=== PATIENT | male | born 1950 | race Caucasian/White ===

== ENCOUNTER 2019-12-21 06:56 | Outpatient (NON) | payer MEDICARE, SELFPAY ==
[2019-12-21 17:45] LABS: SARS-CoV-2 RNA PCR Negative
== END 2019-12-21 06:57 ==
PROVIDERS: PCP Internal Medicine; Visit Provider Internal Medicine
DX: Z20.828 Contact with and (suspected) exposure to other viral communicable diseases (principal); R68.89 Other general symptoms and signs
CPT/HCPCS: 87635; C9803; U0003

== ENCOUNTER 2021-12-17 00:35 | Day surgery (SDC) | payer MEDICARE, SELFPAY ==
[2021-12-04 13:59] VITALS: BMI 33.5
[2021-12-17 07:49] VITALS: BP 145/78; PULSE 72; RESP 20; TEMP 36.2; O2SAT 100; BMI 33.5
[2021-12-17] MEDS: LACTATED RINGERS 1,000 ML 150 ML IV CONT (08:00)
[2021-12-17 08:01] LABS: Glucose Point of Care 117 mg/dl (65-105)
--- NOTE | 2021-12-17 08:24 | WPDANESEPPF ---
Anes - Initial Pre Proc Eval Procedure: Operation Date: 12/17/21 08:30 Proposed Procedures p Screening Colonoscopy - Fei Nunn MD Date/Time: 12/17/21 08:24 Surgeon: Fei Nunn MD Pre Op Diagnosis: hx colon polyps Patient Data Age: 71 Gender: M Height: 1.63 m Weight: 88.6 kg Last Vital Signs Temp 97.2 F L 12/17/21 07:49 Pulse 72 12/17/21 07:49 Resp 20 12/17/21 07:49 BP 145/78 H 12/17/21 07:49 Pulse Ox 100 12/17/21 07:49 O2 Del Method Room Air 12/17/21 07:49 Allergies Allergy/AdvReac Type Severity Reaction Status Date / Time erythromycin base Allergy Unknown itsching Verified 12/17/21 07:48 Home Medications Medication Instructions Recorded Confirmed Type ascorbic acid (vitamin C) 500 mg 500 mg PO DAILY 02/14/19 12/04/21 History tablet aspirin 81 mg tablet,delayed 81 mg PO DAILY 02/14/19 12/04/21 History release vitamin B complex (B 1 tablet PO DAILY 04/28/21 12/04/21 History Complex-Vitamin B12 tablet) dapagliflozin 10 mg tablet 10 mg PO DAILY #90 tabs 07/22/21 12/04/21 Rx (Farxiga) lancets 33 gauge (OneTouch Delica See Rx Instructions .Route 08/03/21 12/04/21 Rx Plus Lancet) .COMPLEX #100 ea lisinopril 10 1 tablet PO DAILY #90 tabs 10/12/21 12/04/21 Rx mg-hydrochlorothiazide 12.5 mg tablet sitagliptin 50 mg-metformin 1,000 1 tablet PO BID #180 tabs 11/05/21 12/04/21 Rx mg tablet (Janumet) peg 3350-electrolytes 236 240 ml PO Q10M #4,000 mL 11/10/21 12/04/21 Rx gram-22.74 gram-6.74 gram-5.86 gram solution (Golytely) atorvastatin 10 mg tablet 10 mg PO DAILY #90 tabs 11/18/21 12/04/21 Rx blood sugar diagnostic #300 ea 11/18/21 12/04/21 Rx Laboratory Tests 12/17/21 07:57 POC Capillary Glucose 117 mg/dl H mg/dl (65-105) Patient hx anesthesia problems: none Family hx anesthesia problems: none Results Review: All pre-operative results and documents have been reviewed as part of the pre-operative evaluation. [facility] Surgical History Surgical History History of ear surgery Family History Family History Mother Family history of diabetes mellitus in first degree relative Family history of malignant neoplasm, Onset Age: 65 Diabetes mellitus, Onset Age: 65 Father Family history of diabetes mellitus in first degree relative, Onset Age: 65 Family history of heart disease in male family member before age 55, Onset Age: 65 Patient's father is Acute myocardial infarction, Onset Age: 65 Sibling Family history of malignant neoplasm of breast in first degree relative Patient's brother is in good health Family history of cardiovascular disease Carcinoma of colon Social History Social History Smoking status: Never smoker Second hand tobacco smoke exposure: Yes Alcohol intake: never Substance use: never Substance use type: does not use Living arrangements: with family Spiritual care concerns: No Anes - Eval Final PreProcedure Day of Procedure 12/17/21 08:24 Patient weight: obese Heart: regular rate and rhythm Lungs: clear to auscultation Neurological: alert and oriented Last oral intake: >/= 8 hours ASA classification: III Emergent: no Anesthetic plan: proceed Anesthesia type and monitoring: general GIVS and standard monitoring Results Review: All pre-operative results and documents have been reviewed as part of the pre-operative evaluation. Informed Consent: The patient's anesthetic plan and its attendant risks and benefits were discussed with the patient/family/POA. Questions were solicited and answers provided to the satisfaction of the patient/family/POA.
--- NOTE | 2021-12-17 08:31 | PM.HPGS ---
History of Present Illness History of Present Illness Consent: Risks, benefits, and alternatives have been discussed and questions answered. Patient agrees to proceed with procedure. Chief complaint: hx colon polyps Narrative: Kevin Ward is a 71 year old male Presents for screening colonoscopy. Patient's current weight appetite and bowel movements are normal. He denies abdominal pain. Patient has had no bleeding. Patient has a history of a benign colon polyp removed from the colon 2015. Family history is significant that his brother had colon cancer. Patient presents today for screening colonoscopy. Patient's past medical history is significant for prostatectomy for prostate cancer several years ago. Review of Systems Review of Systems: Review of systems noncontributory. [facility] Surgical History Surgical History History of ear surgery Family History Family History Mother Family history of diabetes mellitus in first degree relative Family history of malignant neoplasm, Onset Age: 65 Diabetes mellitus, Onset Age: 65 Father Family history of diabetes mellitus in first degree relative, Onset Age: 65 Family history of heart disease in male family member before age 55, Onset Age: 65 Patient's father is Acute myocardial infarction, Onset Age: 65 Sibling Family history of malignant neoplasm of breast in first degree relative Patient's brother is in good health Family history of cardiovascular disease Carcinoma of colon Social History Social History Smoking status: Never smoker Second hand tobacco smoke exposure: Yes Alcohol intake: never Substance use: never Substance use type: does not use Living arrangements: with family Spiritual care concerns: No Meds Home Medications and Allergies Home Medications Medication Instructions Recorded Confirmed Type ascorbic acid (vitamin C) 500 mg 500 mg PO DAILY 02/14/19 12/04/21 History tablet aspirin 81 mg tablet,delayed 81 mg PO DAILY 02/14/19 12/04/21 History release vitamin B complex (B 1 tablet PO DAILY 04/28/21 12/04/21 History Complex-Vitamin B12 tablet) dapagliflozin 10 mg tablet 10 mg PO DAILY #90 tabs 07/22/21 12/04/21 Rx (Farxiga) lancets 33 gauge (OneTouch Delica See Rx Instructions .Route 08/03/21 12/04/21 Rx Plus Lancet) .COMPLEX #100 ea lisinopril 10 1 tablet PO DAILY #90 tabs 10/12/21 12/04/21 Rx mg-hydrochlorothiazide 12.5 mg tablet sitagliptin 50 mg-metformin 1,000 1 tablet PO BID #180 tabs 11/05/21 12/04/21 Rx mg tablet (Janumet) peg 3350-electrolytes 236 240 ml PO Q10M #4,000 mL 11/10/21 12/04/21 Rx gram-22.74 gram-6.74 gram-5.86 gram solution (Golytely) atorvastatin 10 mg tablet 10 mg PO DAILY #90 tabs 11/18/21 12/04/21 Rx blood sugar diagnostic #300 ea 11/18/21 12/04/21 Rx Allergies Allergy/AdvReac Type Severity Reaction Status Date / Time erythromycin base Allergy Unknown itsching Verified 12/17/21 07:48 Vital Signs Vital Signs - 24 hr 12/17/21 07:49 Temperature 97.2 F L Pulse Rate 72 Respiratory Rate 20 Blood Pressure 145/78 H Pulse Oximetry 100 Oxygen Delivery Room Air Exam Narrative: Physical exam reveals patient to be alert. Vital signs stable. HEENT exam is unremarkable. Patient is anicteric. Lungs are clear to auscultation and percussion. Heart is without murmur or extra sounds. Abdomen bowel sounds are present soft nontender with no organomegaly Assessment and Plan Assessment and plan (1) History of colon polyps: Code(s): Z86.010 - Personal history of colonic polyps Status: Acute Assessment and Plan: Patient has a history of a benign colon polyp removed in 2016. Plan for surveillance colonoscopy now and consider at 5 year interval
[2021-12-17 08:58] VITALS: BP 105/67; PULSE 69; RESP 15; O2SAT 96
[2021-12-17 09:08] VITALS: BP 114/69; PULSE 65; RESP 19; O2SAT 93
[2021-12-17 09:18] VITALS: BP 133/87; PULSE 74; RESP 16; O2SAT 94
== END 2021-12-17 09:29 | disposition home or self-care (01) ==
PROVIDERS: PCP Internal Medicine; Visit Provider Internal Medicine Gastroenterology
PROC: 0DJD8ZZ Inspection of Lower Intestinal Tract, Via Natural or Artificial Opening Endoscopic (ICD-10-PCS; CPT 45378; principal; 2021-12-17 08:30)
DX: Z12.11 Encounter for screening for malignant neoplasm of colon (principal); D12.3 Benign neoplasm of transverse colon; K64.8 Other hemorrhoids; Z80.0 Family history of malignant neoplasm of digestive organs; Z79.82 Long term (current) use of aspirin; Z79.84 Long term (current) use of oral hypoglycemic drugs; E66.9 Obesity, unspecified; Z68.33 Body mass index [BMI] 33.0-33.9, adult; Z85.46 Personal history of malignant neoplasm of prostate
CPT/HCPCS: 45385; 82948; 88305; J2704; J7120

== ENCOUNTER 2022-03-31 10:56 | Outpatient (CLI) | payer MEDICARE, SELFPAY ==
--- NOTE | ~2022-03-31 | CT_ITS ---
EXAMINATION: CT abdomen pelvis wo con DATE: 03/31/2022 11:26 INDICATION: Left ureteral stone TECHNIQUE: Computed tomography (CT) of the abdomen and pelvis was performed without intravenous contr ast. Automated exposure control and iterative reconstruction technique were employed. The dose-length product was 547.83 mGy-cm. COMPARISON: 05/30/2018 FINDINGS: Mild bibasilar atelectasis. A couple small calcified nodules in the bilateral lower lobes and calcifi ed left hilar lymph nodes consistent with old granulomatous disease. Heart size is normal. Atheroscle rotic coronary artery calcific location. Small pericardial effusion. Liver, gallbladder, spleen, panc reas and bilateral adrenal glands are normal. Couple 5 mm stones at a lower pole calyx of the right k idney and 2 mm stone at a lower pole calyx of the left kidney. No ureteral stones or hydronephrosis. Bowels including the appendix are normal. Bladder is normal. No free intraperitoneal gas or fluid. No pathologically enlarged abdominal or pelvic lymphadenopathy. Small fat-containing umbilical hernia. A few small bone islands in the pelvis and right femoral head. IMPRESSION: 1. Lateral nonobstructing nephrolithiasis. No ureteral stones. 2. Small pericardial effusion. Reviewed, dictated and finalized at location A. [employer]
--- NOTE | ~2022-03-31 | XR_ITS ---
EXAMINATION: XR abdomen/kub 1V DATE: 03/31/2022 13:00 INDICATION: Left ureteral stone. TECHNIQUE: A supine view of the abdomen on 2 radiographs was obtained. COMPARISON: CT abdomen and pelvis 03/31/2022 FINDINGS: There are no dilated loops of bowel. There are two 5 mm stones in right kidney. There is a 2 mm stone in left kidney. IMPRESSION: 1. Bilateral kidney stones. Reviewed, dictated and finalized at location A. K WASHER IMPRESSION: 1. Bilateral kidney stones.
== END 2022-03-31 10:57 | disposition home or self-care (01) ==
PROVIDERS: PCP Internal Medicine; Visit Provider Urology
DX: N20.0 Calculus of kidney (principal); I31.39 Other pericardial effusion (noninflammatory)
CPT/HCPCS: 74018; 74176

== ENCOUNTER → 2022-04-05 11:09 | Outpatient (CLI) | payer MEDICARE, SELFPAY ==
--- NOTE | ~2022-04-05 | XR_ITS ---
Cervical Spine: AP and lateral views, neutral, flexion, and extension positioning, and open-mouth vie w Clinical History: Pain Findings: The normal lordotic curve is maintained. The vertebral bodies and posterior elements appea r intact. No instability seen on flexion or extension. The intervertebral disc spaces are well mainta ined. Pre-vertebral soft tissues are unremarkable. Impression: No significant abnormality is seen. Reviewed, dictated and finalized at location M. S TENNIS COACH Impression: No significant abnormality is seen.
== END ==
PROVIDERS: PCP Internal Medicine; Visit Provider Nurse Practitioner
DX: M54.2 Cervicalgia (principal)
CPT/HCPCS: 72050

== ENCOUNTER → 2022-06-03 12:17 | Outpatient (CLI) | payer MEDICARE, SELFPAY ==
--- NOTE | ~2022-06-03 | MR_ITS ---
EXAMINATION: MR knee RT wo con DATE: 06/03/2022 12:47 INDICATION: Right knee pain TECHNIQUE: Magnetic resonance imaging (MRI) of the right knee was performed without intravenous contr ast. Sequences included coronal PD-weighted FSE, coronal PD-weighted FS FSE, sagittal T2-weighted FS E, sagittal PD-weighted FS FSE and axial PD weighted fat saturated FSE. COMPARISON: None. FINDINGS: Medial compartment: Small tears of indeterminate morphology extending to the intra-articular surface at the body of the m edial meniscus and at the free edge of the posterior horn of the medial meniscus. Shallow chondral ul ceration along the anterior to central weightbearing medial femoral condyle. Articular cartilage of t he medial tibial plateau appears relatively preserved. Lateral compartment: Lateral meniscus is normal. Articular cartilage is normal. Patellofemoral compartment: Deep chondral and ulceration and fissuring with minimal underlying cortical irregularity and edema-li ke signal change at the patellar apical ridge and medial facet. Additional deep chondral ulceration w ith underlying cortical irregularity at the anterior aspect of the lateral trochlea and trochlear crystal ove. Ligaments and tendons: Anterior and posterior cruciate ligaments are normal. The fibular collateral ligament complex is norm al. There is a tiny longitudinal split tear between the central and posterior thirds of the proximal ligament. There is mild edema along the deep and superficial margins of the medial collateral ligamen t. Patellar tendon is normal. Mild tendinopathy and small enthesophytes at the patellar insertion of the lateral side of the distal quadriceps tendon. The visualized medial and lateral hamstring tendons as well as the iliotibial band are normal. Fluid: Small right knee joint effusion. No loose osteochondral bodies identified. Small Shrestha's cyst. Osseous/other: Bone alignment is normal. No fracture or pathologic marrow replacing process. IMPRESSION: 1. Small tears of indeterminate morphology at the medial meniscal body and posterior horn. 2. Mild osteoarthritis with regions of moderate and high-grade chondral malacia the medial and patell ofemoral compartments. 3. Age-indeterminate tiny longitudinal split tear at the proximal medial collateral ligament. The oliver ctive edema along side the proximal tendon could be related to either recent injury of the ligament o r the adjacent medial meniscus. 4. Small right knee joint effusion and small Shrestha's cyst. Reviewed, dictated and finalized at location A. IMPRESSION: 1. Small tears of indeterminate morphology at the medial meniscal body and post erior horn. 2. Mild osteoarthritis with regions of moderate and high-grade chondral malacia the medial and patellofemoral compartments. 3. Age-indeterminate tiny longitudinal split tear at the proximal medial collat eral ligament. The reactive edema along side the proximal tendon could be relat ed to either recent injury of the ligament or the adjacent medial meniscus. 4. Small right knee joint effusion and small Shrestha's cyst.
== END ==
PROVIDERS: PCP Internal Medicine; Visit Provider Orthopaedic Surgery
DX: S83.241A Other tear of medial meniscus, current injury, right knee, initial encounter (principal); M17.11 Unilateral primary osteoarthritis, right knee; S83.411A Sprain of medial collateral ligament of right knee, initial encounter; M25.461 Effusion, right knee; M71.21 Synovial cyst of popliteal space [Baker], right knee; T14.90XA Injury, unspecified, initial encounter
CPT/HCPCS: 73721

== ENCOUNTER 2022-06-23 12:32 | Outpatient (CLI) | payer MEDICARE, SELFPAY ==
--- NOTE | 2022-06-23 | ECG_ITS ---
Measurements Intervals [place] Rate: 77 P: 52 NE: 189 QRS: -16 QRSD: 112 T: 27 QT: 357 QTc: 404 Interpretive Statements SINUS RHYTHM LOW QRS VOLTAGE IN PRECORDIAL LEADS [QRS DEFLECTION < 1.0 mV IN CHEST LEADS] POSSIBLE ANTERIOR MYOCARDIAL INFARCTION , OF INDETERMINATE AGE [30 ms Q WAVE IN V3/V4, OR R < 0.2 mV IN V4] INFERIOR MYOCARDIAL INFARCTION , PROBABLY OLD [40+ ms Q WAVE AND/OR ST/T ABNORMALITY IN II/aVF] ABNORMAL ECG COMPARED TO ECG 10/02/2018 14:51:49 MYOCARDIAL INFARCT FINDING NOW PRESENT Electronically Signed On 06-23-2022 13:39:29 CDT by Roly Mcleod M.D.
[2022-06-23 13:18] LABS: Anion Gap 10 mmol/L (8-16); Blood Urea Nitrogen 25 mg/dL (9-20); Calcium 10.4 mg/dL (8.4-10.2); Carbon Dioxide 29 mmol/L (22-30); Chloride 101 mmol/L (98-107); Estimated Glomerular Filt Rate > 60; Glucose 230 mg/dL (65-110); Potassium 4.1 mmol/L (3.4-5.0); Sodium 140 mmol/L (137-145)
== END 2022-06-23 12:33 | disposition home or self-care (01) ==
LOC: ANHLAB 12:38
PROVIDERS: PCP Internal Medicine; Visit Provider Orthopaedic Surgery
DX: Z01.818 Encounter for other preprocedural examination (principal); R94.31 Abnormal electrocardiogram [ECG] [EKG]
CPT/HCPCS: 36415; 80048; 93005

== ENCOUNTER 2022-09-30 08:52 | Outpatient (CLI) | payer MEDICARE, SELFPAY ==
--- NOTE | ~2022-09-30 | XR_ITS ---
EXAMINATION: XR abdomen/kub 1V DATE: 09/30/2022 09:12 INDICATION: Calcium kidney stone. TECHNIQUE: A supine view of the abdomen on 2 radiographs was obtained. COMPARISON: Abdomen radiographs 03/31/2022, CT abdomen and pelvis 03/31/2022 FINDINGS: There are no dilated loops of bowel. There are 7 mm and 9 mm stones in right kidney. IMPRESSION: 1. Right kidney stones. Reviewed, dictated and finalized at location L. IMPRESSION: 1. Right kidney stones.
== END 2022-09-30 08:53 | disposition home or self-care (01) ==
PROVIDERS: PCP Family Medicine; Visit Provider Urology
DX: N20.0 Calculus of kidney (principal)
CPT/HCPCS: 74018

== ENCOUNTER 2022-11-08 07:42 | Outpatient (CLI) | payer MEDICARE, SELFPAY ==
[2022-11-08 09:15] LABS: Anion Gap 10 mmol/L (8-16); Blood Urea Nitrogen 25 mg/dL (9-20); Calcium 9.9 mg/dL (8.4-10.2); Carbon Dioxide 27 mmol/L (22-30); Chloride 102 mmol/L (98-107); Estimated Glomerular Filt Rate > 60; Glucose 135 mg/dL (65-110); INR 0.9; Potassium 3.8 mmol/L (3.4-5.0); Prothrombin Time 12.7 Seconds (11.1-14.7); Sodium 139 mmol/L (137-145)
[2022-11-08 09:16] LABS: Partial Thromboplastin Time 29.4 SECONDS (22.3-36.8)
== END 2022-11-08 07:43 | disposition home or self-care (01) ==
LOC: ANHSURGERY 07:56
PROVIDERS: Anesthesiology; PCP Family Medicine; Visit Provider Urology
DX: Z01.818 Encounter for other preprocedural examination (principal); E11.9 Type 2 diabetes mellitus without complications; N20.0 Calculus of kidney
CPT/HCPCS: 36415; 80048; 85610; 85730; 87086

== ENCOUNTER 2022-11-12 00:16 | Day surgery (SDC) | payer MEDICARE, SELFPAY ==
[2022-11-05 11:11] VITALS: BMI 33.5
--- NOTE | 2022-11-05 11:27 | PC.NURSE ---
PRE-OP INSTRUCTIONS, PLEASE READ CAREFULLY Report to the Outpatient Waiting Room, entrance under the green pavilion located off [facility], at time _0600_ on date _11/12/22_. Planned Procedure Time: _0730_. Time changes happen often and if your time is changed the preop area will call you the afternoon before. - You and your visitor will be asked to self-screen and do not enter if you have any COVID symptoms. - A mask is optional within the hospital at this time. Patients may have clear liquids (water, carbonated beverages, clear teas, apple juice) until 3 hours prior to surgery (0430 AM) with a maximum of 20 ounces. - No food from midnight until time of surgery Take the following medications with a SIP of water the morning of surgery: _METHOCARBAMOL IF NEEDED_ DO NOT STOP ANY OF YOUR OTHER PRESCRIPTION MEDICATIONS PRIOR TO SURGERY ?EXCEPT THE FOLLOWING Medications to discontinue per DR. CACERES - _ASPIRIN OF TODAY 11/05/22 Please no make-up, nail malaysian, hairspray, perfume, deodorant, or body powder the day of surgery. No jewelry (including any body piercings) or valuables the day of surgery, leave them at home. Please take a shower or bath the night before, or the morning of, surgery with an antibacterial soap. Wear comfortable, loose fitting clothing. - Jewelry must be removed prior to entering the operating room. Rings and piercings that are not removed may be cut off. - The hospital will not accept responsibility for valuables. - Please leave all valuables, including medications, at home the day of surgery. If you are going home after surgery, a licensed wedding transportation driver must drive you home. - NO public transportation without another adult if you receive anesthesia. - We recommend that an adult stay with you for 24 hours following discharge. - We also recommend that you do not drive, make important decision, drink alcoholic beverages, or take any drugs that were not prescribed by your health care provider for at least 24 hours after your discharge time. Follow any additional instructions given to you from your surgeon. If you or anyone in your household have experienced Covid symptoms in the past week, please notify your surgeon or the nurse liaison at the phone number below for possible testing. Telephone instructions given to _PATIENT'S SPOUSE - CANDELARIO_and asked if any additional questions and then verbalized understanding. Patient advised to call surgeon office or pre surgery nurse liaison [phone] if any additional questions.
[2022-11-12] VITALS (7 sets, daily range): BP systolic 110–151; BP diastolic 74–95; PULSE 59–69; RESP 12–16; TEMP 36.2; O2SAT 97–100
--- NOTE | ~2022-11-12 | XR_ITS ---
Supine and upright views of the abdomen Clinical history: Lithotripsy COMPARISON: 09/30/2022 Findings: Bowel gas pattern is nonspecific. No evidence for obstruction or free air. Stable right nep hrolithiasis. Osseous structures are intact. Impression: Stable right nephrolithiasis as compared to 09/30/2022. Reviewed, dictated and finalized at [facility]. Impression: Stable right nephrolithiasis as compared to 09/30/2022.
[2022-11-12 07:09] LABS: Glucose Point of Care 181 mg/dl (65-105)
--- NOTE | 2022-11-12 07:13 | WPDANESEPPF ---
Anes - Initial Pre Proc Eval Procedure: Operation Date: 11/12/22 07:30 Proposed Procedures p Right Renal Extracorporeal Shock Wave Lithotripsy - Leo Camara MD Date/Time: 11/12/22 07:13 Surgeon: Leo Camara MD Pre Op Diagnosis: right renal stone Patient Data Age: 72 Gender: M Height: 1.63 m Weight: 88.2 kg Last Vital Signs Temp 36.2 C L 11/12/22 07:00 Pulse 67 11/12/22 07:00 Resp 16 11/12/22 07:00 BP 110/74 11/12/22 07:00 Pulse Ox 100 11/12/22 07:00 O2 Del Method Room Air 11/12/22 07:00 Allergies Allergy/AdvReac Type Severity Reaction Status Date / Time erythromycin base Allergy Unknown itsching Verified 11/12/22 06:04 Home Medications Medication Instructions Recorded Confirmed Type ascorbic acid (vitamin C) 500 mg 500 mg PO DAILY 02/14/19 11/05/22 History tablet aspirin 81 mg tablet,delayed 81 mg PO DAILY 02/14/19 11/05/22 History release vitamin B complex (B 1 tablet PO DAILY 04/28/21 11/05/22 History Complex-Vitamin B12 tablet) methocarbamol 750 mg tablet 750 mg PO TID PRN muscle spasm #30 04/01/22 11/05/22 Rx tabs lancets 33 gauge (OneTouch Delica See Rx Instructions .Route 04/27/22 11/05/22 Rx Plus Lancet) .COMPLEX #100 ea omega 7-xxi-xvf-fish oil 1,000 mg 2 cap PO BID 07/09/22 11/05/22 History (120 mg-180 mg) capsule (Fish Oil) dapagliflozin propanediol 10 mg 10 mg PO DAILY #90 tabs 07/19/22 11/05/22 Rx tablet (Farxiga) lisinopril 10 1 tablet PO DAILY #90 tabs 08/30/22 11/05/22 Rx mg-hydrochlorothiazide 12.5 mg tablet sitagliptin phosphate 50 1 tablet PO BID #180 tabs 09/02/22 11/05/22 Rx mg-metformin 1,000 mg tablet (Janumet) blood sugar diagnostic (OneTouch #300 strips 11/08/22 Rx Ultra Test strips) atorvastatin 10 mg tablet 10 mg PO DAILY #90 tabs 11/09/22 Rx Laboratory Tests 11/12/22 07:06 POC Capillary Glucose 181 H mg/dl (65-105) Patient hx anesthesia problems: none Family hx anesthesia problems: none Results Review: All pre-operative results and documents have been reviewed as part of the pre-operative evaluation. [facility] Surgical History Surgical History History of ear surgery Family History Family History Mother Family history of diabetes mellitus in first degree relative Family history of malignant neoplasm, Onset Age: 65 Diabetes mellitus, Onset Age: 65 Father Family history of diabetes mellitus in first degree relative, Onset Age: 65 Family history of heart disease in male family member before age 55, Onset Age: 65 Patient's father is Acute myocardial infarction, Onset Age: 65 Sibling Family history of malignant neoplasm of breast in first degree relative Patient's brother is in good health Family history of cardiovascular disease Carcinoma of colon Social History Social History Smoking status: Never smoker Second hand tobacco smoke exposure: No Alcohol intake: never Substance use: never Substance use type: does not use Lack of Transportation: No Lack of Food: Never True Current Housing: I Have Housing Concerned About Future Housing: No Difficulty Paying Gas/Electric Bills: No Difficulty Paying for Meds: No Currently Unemployed: No Education: High School Diploma/GED Difficulty w/ Childcare or Family Care: No Living arrangements: with family Spiritual care concerns: No Anes - Eval Final PreProcedure Day of Procedure 11/12/22 07:13 Patient weight: obese Heart: regular rate and rhythm Lungs: clear to auscultation Airway: Mallampati scale class II Neurological: alert and oriented Last oral intake: >/= 8 hours ASA classification: III Emergent: no Anesthetic plan: proceed Anesthesia type and monitoring: g
--- NOTE | 2022-11-12 07:20 | WPDHPUPDATE1 ---
History and Physical Update Update Date/Time: 11/12/22 07:20 History and Physical has been reviewed, including an updated exam of the patient. There are NO changes in the patient's condition. Risks, benefits, and alternatives have been discussed and questions answered. Patient agrees to proceed with procedure. Proceed with right renal eswl
[2022-11-12] MEDS: LACTATED RINGERS 1,000 ML 30 ML IV CONT (07:29)
[2022-11-12] MEDS: ceFAZolin 2 GM/D5W 50 ML 2 GM/50 ML BAG IVPB (07:30)
--- NOTE | 2022-11-12 08:01 | W.PM.PROC2 ---
Procedure Note - Detailed Date of Procedure 11/12/22 Pre-op Diagnosis right renal stone Post-op Diagnosis Same Procedure Performed Lithotripsy of right renal calculus Surgeon Leo Camara MD Anesthesia General Description of Procedure Patient is taken to the operative suite correctly identified. Once anesthesia was obtained the stone was localized in both planes. Two thousand five hundred shocks were given the stone. It did appear to fragment however the degree is unclear. He tolerated procedure well without any complications. He was taken recovery stable condition. He will follow-up in 7-10 days with KUB. This completes dictation. Please send a copy of op note to my office. Drains No Packing No Pathology None sent Complications No immediate complications Condition Stable Disposition PACU
[2022-11-12 08:20] LABS: Glucose Point of Care 173 mg/dl (65-105)
== END 2022-11-12 09:39 | disposition home or self-care (01) ==
PROVIDERS: PCP Nurse Practitioner; Visit Provider Urology
PROC: (CPT 50590; principal; 2022-11-12 07:30)
DX: N20.0 Calculus of kidney (principal); C61 Malignant neoplasm of prostate; Z79.82 Long term (current) use of aspirin; Z79.84 Long term (current) use of oral hypoglycemic drugs; E66.9 Obesity, unspecified; Z68.33 Body mass index [BMI] 33.0-33.9, adult
CPT/HCPCS: 50590; 36415; 74018; 80048; 82948; 85610; 85730; 87086; J0690; J2405; J2704; J3010; J7120

== ENCOUNTER 2022-11-22 08:15 | Outpatient (CLI) | payer MEDICARE, SELFPAY ==
--- NOTE | ~2022-11-22 | XR_ITS ---
XR abdomen/kub 1V 11/22/2022 08:35 Indication: KUB Procedure: 11/12 and 09/30/2022 Comparison: 11/12/2022 Findings: There is a stone at the lower pole of the right kidney. Stone burden has diminished since p rior examination. Bowel pattern is nonobstructive. There is a sclerotic lesion of the left ilium, mos t likely benign bone island. Impression: 1: Right nephrolithiasis. Reviewed, dictated and finalized at location B. Impression: 1: Right nephrolithiasis.
== END 2022-11-22 08:16 | disposition home or self-care (01) ==
PROVIDERS: PCP Nurse Practitioner; Visit Provider Urology
DX: N20.0 Calculus of kidney (principal)
CPT/HCPCS: 74018

== ENCOUNTER 2023-02-02 10:32 | Observation (INO) | payer MEDICARE, SELFPAY ==
[2023-02-02] VITALS (27 sets, daily range): BP systolic 99–158; BP diastolic 61–106; PULSE 54–151; RESP 16–25; TEMP 36.7–37; O2SAT 95–100; BMI 33.8
--- NOTE | ~2023-02-02 | XR_ITS ---
EXAMINATION: XR chest 2V 02/02/2023 11:21 INDICATION: Atrial fibrillation PROCEDURE: 2 view chest COMPARISON: 10/12/2010 FINDINGS: The lungs are clear. The cardiomediastinal silhouette is within normal limits. There are no pleural effusions. There is no pneumothorax suspected. IMPRESSION: 1: NO ACUTE CARDIOPULMONARY DISEASE. Reviewed, dictated and finalized at location B. TING SUPERVISOR
--- NOTE | 2023-02-02 10:34 | ECG_ITS ---
Measurements Intervals [place] Rate: 153 P: DC: 0 QRS: -3 QRSD: 106 T: 12 QT: 286 QTc: 457 Interpretive Statements ATRIAL FIBRILLATION WITH RAPID VENTRICULAR RESPONSE LOW QRS VOLTAGE IN PRECORDIAL LEADS [QRS DEFLECTION < 1.0 mV IN CHEST LEADS] INCOMPLETE RIGHT BUNDLE BRANCH BLOCK [90+ ms QRS DURATION, TERMINAL R IN V1/V2, 40+ ms S IN I/aVL/V4/V5/V6] POOR R-WAVE PROGRESSION, CANNOT RULE OUT OLD ANTERIOR NE ABNORMAL RHYTHM ECG COMPARED TO ECG 06/23/2022 13:09:41 ATRIAL FIBRILLATION NOW PRESENT INCOMPLETE RIGHT BUNDLE-BRANCH BLOCK NOW PRESENT Electronically Signed On 02-02-2023 12:10:17 [employer] DEVELOPER by Evon Cisneros M.D.
--- NOTE | 2023-02-02 10:47 | ED.ARRPALP ---
HPI - Arrhythmia/Palpitations General Chief Complaint: Arrhythmia/Palpitations Stated Complaint: in afib Time Seen by Provider: 02/02/23 10:40 History of Present Illness HPI narrative: 72-year-old male history of hypertension, high cholesterol and diabetes presenting to the emergency department for evaluation of increased heart rate this morning. Patient states he felt fine going to bed last night and this morning when he woke up he felt that he was having increased heart rate. Patient initially presented to an urgent care and then was referred to the emergency department. Upon arrival to the ED patient had a heart rate in the 130s. Patient states he feels heart is racing but denies any associated chest pain or shortness of breath. Patient has no prior history of coronary disease and had a stress test approximately 5 years ago. Patient denies any prior history of PE or DVT. Patient is not on any blood thinners but does take a daily aspirin. Related Data Home Medications Medication Instructions Recorded Confirmed ascorbic acid (vitamin C) 500 mg 500 mg PO DAILY 02/14/19 02/02/23 tablet aspirin 81 mg tablet,delayed 81 mg PO DAILY 02/14/19 02/02/23 release vitamin B complex (B 1 tablet PO DAILY 04/28/21 02/02/23 Complex-Vitamin B12 tablet) omega 2-qvf-xlm-fish oil 1,000 mg 2 cap PO BID 07/09/22 02/02/23 (120 mg-180 mg) capsule (Fish Oil) cyanocobalamin (vitamin B-12) 1,000 mcg PO DAILY 11/16/22 02/02/23 1,000 mcg tablet (Vitamin B-12) multivitamin 1 tablet PO DAILY 02/02/23 02/02/23 Allergies Allergy/AdvReac Type Severity Reaction Status Date / Time erythromycin base Allergy Unknown Itching Verified 02/02/23 14:32 Review of Systems Review of Systems: All systems reviewed & are unremarkable except as noted in HPI and below PMFSH Past Medical History Medical History (Updated 02/02/23 @ 18:45 by Dominik Mcneil MD) Family history of premature CAD Hypertension Mixed hyperlipidemia New onset a-fib Type 2 diabetes mellitus without complication, without long-term current use of insulin Surgical History Surgical History History of ear surgery Family History Family History (Updated 02/02/23 @ 15:18 by Evon Cisneros MD) Mother Family history of diabetes mellitus in first degree relative Family history of malignant neoplasm, Onset Age: 65 History of smoking, of lung cancer age 65 Diabetes mellitus, Onset Age: 65 Father Family history of diabetes mellitus in first degree relative, Onset Age: 65 Family history of heart disease in male family member before age 55, Onset Age: 65 Patient's father is Acute myocardial infarction, Onset Age: 65 1st heart attack was age 42, of heart attack at 64 Sibling Family history of malignant neoplasm of breast in first degree relative Patient's brother is in good health Family history of cardiovascular disease Carcinoma of colon Social History Social History (Updated 02/02/23 @ 15:31 by Evon Cisneros MD) 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 Likes to go on [employer], 2 to the [place] and one to [place] in [id number]. Smoking status: Never smoker Second hand tobacco smoke exposure: No Alcohol intake: never Substance use: never Substance use type: does not use Lack of Transportation: No Lack of Food: Never True Current Housing: I Have Housing Concerned About Future Housing: No Difficulty Paying Gas/Electric Bills: No Difficulty Paying for Meds: No Currently Unemployed: No Education: High School Diploma/GED Difficulty w/ Childcare or Family Care: No Living arrangements: with family Spiritual care concerns: No Exam Narrative: APPEARANCE: Well appearing, no pain, no distress, well-nourished. HEAD: normocephalic, atraumatic. EYES: PERRLA/EOMI, conjunctivae ankit
[2023-02-02] MEDS: dilTIAZem 100 MG/100 ML 100 MG/100 ML BAG IV CONT (10:52)
[2023-02-02] MEDS: dilTIAZem HCl INJ 25 MG/5 ML VIAL 10 MG IV PUSH (10:52)
[2023-02-02 11:08] LABS: Basophils Absolute Auto 0.1 K/mm3 (0.0-0.1); Basophils Percent Auto 0.8 % (0.2-1.2); Eosinophils Absolute Auto 0.1 K/mm3 (0-0.3); Eosinophils Percent Auto 1.4 % (0-4.4); Hematocrit 53.5 % (42.0-52.0); Hemoglobin 17.9 g/dL (14.0-18.0); Immature Granulocyte Absolute 0.01 K/mm3 (0.00-0.031); Immature Granulocyte Percent A 0.2 % (0-0.5); Lymphocytes Absolute Auto 1.62 K/mm3 (0.9-3.2); Mean Corpuscular HGB Conc 33.5 g/dl (32-36); Mean Corpuscular Hemoglobin 28.5 pg (26-34); Mean Corpuscular Volume 85.3 fl (80-100); Monocytes Absolute Auto 0.7 K/mm3 (0.1-0.6); Monocytes Percent Auto 10.7 % (2.6-8.5); Neutrophils Percent Auto 61.9 % (45.5-73.1); Platelet Count Result 228 k/mm3 (150-375); Red Blood Count 6.27 M/mm3 (4.6-6.20); Red Cell Distribution Width 14.2 % (11.5-14.5); White Blood Count 6.5 K/mm3 (4.5-10.0)
[2023-02-02 11:19] LABS: Alanine Aminotransferase 32 U/L (6-50); Alkaline Phosphatase 108 U/L (38-126); Anion Gap 14 mmol/L (8-16); Aspartate Amino Transferase 28 U/L (17-59); Bilirubin,Total 0.6 mg/dL (0.2-1.3); Blood Urea Nitrogen 26 mg/dL (9-20); Calcium 10.8 mg/dL (8.4-10.2); Carbon Dioxide 25 mmol/L (22-30); Chloride 102 mmol/L (98-107); Estimated CRCL calculation 86 ml/min; Estimated Glomerular Filt Rate > 60; Glucose 188 mg/dL (65-110); Lipase 199 U/L (23-300); Sodium 141 mmol/L (137-145)
[2023-02-02 11:21] LABS: INR 0.9; Prothrombin Time 12.9 Seconds (11.1-14.7)
[2023-02-02 11:23] LABS: Partial Thromboplastin Time 26.5 SECONDS (22.3-36.8)
[2023-02-02 11:29] LABS: Troponin I < 0.012 ng/mL (0.000-0.034)
[2023-02-02] MEDS: ASPIRIN 81 MG CHEWABLE TABLET 324 MG PO (11:48)
[2023-02-02] MEDS: dilTIAZem HCl INJ 25 MG/5 ML VIAL 15 MG IV PUSH (11:48)
[2023-02-02] MEDS: SODIUM CHLORIDE 0.9% IV 1,000 ML 250 ML IV CONT (11:48)
[2023-02-02 11:54] LABS: Influenza A QL RT-PCR Negative (Negative); Influenza B QL RT-PCR Negative (Negative); RSV RNA, RT-PCR Negative (Negative); SARS-CoV-2 RNA PCR Negative (Negative)
[2023-02-02 13:58] LABS: Magnesium 1.9 mg/dL (1.6-2.3)
[2023-02-02 14:12] LABS: Troponin I < 0.012 ng/mL (0.000-0.034)
--- NOTE | 2023-02-02 14:33 | PM.CNCAR ---
Assessment and Plan Assessment and plan (1) New onset a-fib: Code(s): I48.91 - Unspecified atrial fibrillation Status: Acute Assessment and Plan: New onset of AFib with rapid ventricular response. Improved on IV Cardizem. Does have a CHADS2 Vasc score of 3; recommend anticoagulation. Counseled patient about AFib, causes, treatments and anticoagulation. --Cont IV CArdizem, increase to 1o mg /hr. --check TSH --check echo --DC aspirin --start anticoagulation with Xarelto 20 mg qd --Ischemia evaluation as OPT --I like to offer my active patients the option for evangelical of sinus rhythm. I Reviewed options with patient; if he does not convert to sinus rhythm overnight, we could discharge him on rate control and see if he converts on his own in the next few weeks, or consider cardioversion tomorrow. Will leave NPO. (2) Essential (primary) hypertension: Code(s): I10 - Essential (primary) hypertension Status: Acute Assessment and Plan: Generally controlled. --Currently taking lisinopril HCTZ; may need to DC the HCTZ and use Lisinopril (for HTN and DM) + BB (3) Mixed hyperlipidemia: Code(s): E78.2 - Mixed hyperlipidemia Status: Acute Assessment and Plan: Cont atorvastatin. (4) Family history of premature CAD: Code(s): Z82.49 - Family history of ischemic heart disease and other diseases of the circulatory system Status: Acute Assessment and Plan: Continue primary prevention. (5) Type 2 diabetes mellitus without complication, without long-term current use of insulin: Code(s): E11.9 - Type 2 diabetes mellitus without complications Status: Acute Assessment and Plan: A1C was 7.2 in Oct 2022. History of Present Illness History of Present Illness Consult date/time: 02/02/23 14:33 Reason For Visit: afib with rvr Narrative: Kevin Ward is a 72 y.o. male whom we are asked to see at the request of Dr. Mcneil in the emergency room for advice and opinion regarding his new onset of atrial fibrillation with rapid ventricular response. He has a history of hypertension, high cholesterol and diabetes. The patient has noted fast heartbeats intermittently but they last less than a minute. Last night when he went to bed he noted fast heart beats, and they persisted this morning. He felt flushed but had no chest discomfort, dizziness or shortness of breath. He came to the emergency room and was found to have new onset AFib with heart rate in the 130s. He was given Cardizem 10 then 15 mg IV push, and started on a Cardizem drip at 10 milligrams/hour. HR is now 100-110 BPM. Mr. Franks has no history of heart disease. He has active gentleman, and can do heavy yd work etc. with no particular problems, no WILLIS or chest discomfort. No bleeding issues. No signs or symptoms of sleep apnea. No alcohol intake or thyroid disease. Family history of premature CAD but no history of AFib. He was planning on going to [facility] tomorrow for the weekend. EKG today: AFib rate 153, low voltage, poor R-wave progression, nonspecific ST changes Troponins negative x2 Chest x-ray: Clear, personally reviewed Review of Systems Constitutional: Constitutional: Denies fever(s) Eyes: Eyes: Reports no additional eye complaints ENT: Denies epistaxis Cardiovascular: Cardiovascular: Denies chest pain, Denies pedal edema, Denies lightheadedness, Reports palpitations and Denies dyspnea Respiratory: Respiratory: Denies chest congestion and Denies dyspnea Gastrointestinal: Gastrointestinal: Denies abdominal pain and Denies hematochezia Genitourinary: Genitourinary: Denies hematuria Musculoskeletal: Musculoskeletal: Reports arthralgias (Right knee pain) Integumentary/Breasts: Skin/Breast: Reports system reviewed and no additional complaints, except as docu Neurologic: Reports system reviewed and no additional complaints, except as documented and
--- NOTE | 2023-02-02 14:46 | ADMGEN ---
This patient, Kevin Ward, was admitted to IMU Room 206-01. Patient/family oriented to hospital policies and general routines including ID bracelet, bed and alarms, visiting hours, pain management, procedures, bathroom and other care routines, personal items, smoking policy, room service/diet, and visiting hours. Information on how to activate the Rapid Response Team has been discussed. Patient/Family are encouraged to report perceived risks to care and to ask questions if they do not understand what they are told or what they should do.
[2023-02-02] MEDS: RIVAROXABAN 20 MG TABLET PO (17:09)
--- NOTE | 2023-02-02 17:26 | ECG_ITS ---
Measurements Intervals [place] Rate: 63 P: 24 DE: 183 QRS: -18 QRSD: 93 T: 30 QT: 372 QTc: 383 Interpretive Statements SINUS RHYTHM LOW QRS VOLTAGE IN PRECORDIAL LEADS [QRS DEFLECTION < 1.0 mV IN CHEST LEADS] INFERIOR MYOCARDIAL INFARCTION [40+ ms Q WAVE AND/OR ST/T ABNORMALITY IN II/aVF], PROBABLY OLD COMPARED TO ECG 02/02/2023 10:39:28 SINUS RHYTHM NOW PRESENT Electronically Signed On 02-03-2023 9:15:09 CHIEF OPHTHALMIC TECHNICIAN by Love Carson M.D.
[2023-02-02 17:30] LABS: Troponin I < 0.012 ng/mL (0.000-0.034)
[2023-02-02] MEDS: METOPROLOL TARTRATE 25 MG TABLET PO (17:46)
[2023-02-02 21:36] LABS: Glucose Point of Care 216 mg/dl (65-105)
--- NOTE | 2023-02-02 21:43 | PM.IMHP ---
H&P: HPI History of Present Illness Date/Time: 02/02/23 21:43 Chief Complaint: Atrial Fibrillation Narrative: 72 y/o M presents here with intermittent tachycardia with PMH of HTN, HLD, and DM. Patient reports that he began to experience the sensation of facial flushing, palpitations that he could primarily feel in his face and varying heart rates on his smart watch that began today. No associated chest pain, lightheadedness, dizziness or syncope. No previous history of thyroid dysfunction. Reports his diabetes and high blood pressure have been historically well controlled. No other symptoms that patient can report. Patient called his PCP to have his blood pressure checked as well as his heart rate. Reports that he was mildly hypertensive at his primary office and they observed that patient's heart rate was varied (70-160). EKG was obtained and patient was referred to ED due to concern for new onset AFib. HR 86-150's at arrival. Started on diltiazem - initial 10 mg IVP then started on gtt at 15 mg/hr. Patient converted to NSR and has sustained. No other complaints at this time. No recurrent palpitations or flushing. Review of Systems Review of Systems: All systems reviewed & are unremarkable except as noted in HPI and below PMFSH Past Medical History Medical History Atrial fibrillation with tachycardic ventricular rate Dx of 02/02/23 Family history of premature CAD Hypertension Mixed hyperlipidemia Type 2 diabetes mellitus without complication, without long-term current use of insulin Surgical History Surgical History History of ear surgery Family History Family History Mother Family history of diabetes mellitus in first degree relative Family history of malignant neoplasm, Onset Age: 65 History of smoking, of lung cancer age 67 Diabetes mellitus, Onset Age: 65 Father Family history of diabetes mellitus in first degree relative, Onset Age: 65 Family history of heart disease in male family member before age 55, Onset Age: 65 Patient's father is Acute myocardial infarction, Onset Age: 65 1st heart attack was age 42, of heart attack at 66 Sibling Family history of malignant neoplasm of breast in first degree relative Patient's brother is in good health Family history of cardiovascular disease Carcinoma of colon Social History Social History 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 Likes to go on [employer], [place] to the [employer] and one to [place] in [id number]. Smoking status: Never smoker Second hand tobacco smoke exposure: No Alcohol intake: never Substance use: never Substance use type: does not use Lack of Transportation: No Lack of Food: Never True Current Housing: I Have Housing Concerned About Future Housing: No Difficulty Paying Gas/Electric Bills: No Difficulty Paying for Meds: No Currently Unemployed: No Education: High School Diploma/GED Difficulty w/ Childcare or Family Care: No Living arrangements: with family Spiritual care concerns: No Meds Home Medications and Allergies Home Medications Medication Instructions Recorded Confirmed Type ascorbic acid (vitamin C) 500 mg 500 mg PO DAILY 02/14/19 02/02/23 History tablet aspirin 81 mg tablet,delayed 81 mg PO DAILY 02/14/19 02/02/23 History release vitamin B complex (B 1 tablet PO DAILY 04/28/21 02/02/23 History Complex-Vitamin B12 tablet) lancets 33 gauge (OneTouch Delica See Rx Instructions .Route 04/27/22 02/02/23 Rx Plus Lancet) .COMPLEX #100 ea omega 0-dng-zzw-fish oil 1,000 mg 2 cap PO BID 07/09/22 02/02/23 History (120 mg-180 mg) capsule (Fish Oil) dapagliflozin propanediol 10 mg 1
[2023-02-03] VITALS (8 sets, daily range): BP systolic 104–132; BP diastolic 65–74; PULSE 53–70; RESP 14–16; TEMP 36.3–36.8; O2SAT 98
--- NOTE | 2023-02-03 01:34 | ECG_ITS ---
Measurements Intervals [place] Rate: 59 P: 14 [place]: 202 QRS: -7 QRSD: 124 T: 12 QT: 409 QTc: 407 Interpretive Statements SINUS BRADYCARDIA POOR R-WAVE PROGRESSION INFERIOR MYOCARDIAL INFARCTION [40+ ms Q WAVE AND/OR ST/T ABNORMALITY IN II/aVF], PROBABLY OLD ABNORMAL ECG COMPARED TO ECG 02/02/2023 17:35:09 SINUS BRADYCARDIA NOW PRESENT, NO OTHER CHANGE Electronically Signed On 02-04-2023 10:43:14 SENIOR INFORMATION SYSTEMS ARCHITECT by Germán Finch M.D.
--- NOTE | 2023-02-03 02:24 | PC.NURSE ---
Metoprolol not administered at 2100. Patient's heart rate in lower 50's. Elena Jeffries NP gave orders to not give the dose and monitor for increase in heart rate.
[2023-02-03 05:15] LABS: Hemoglobin A1C 7.6 % (<5.7)
[2023-02-03 08:41] LABS: Glucose Point of Care 161 mg/dl (65-105)
[2023-02-03] MEDS: hydroCHLOROthiazide 12.5 MG CAPSULE PO (09:09)
[2023-02-03] MEDS: CYANOCOBALAMIN 1,000 MCG TABLET 1000 MCG PO (09:09)
[2023-02-03] MEDS: lisinopriL 10 MG TABLET PO (09:09)
[2023-02-03] MEDS: metFORMIN HCL 500 MG TABLET 1000 MG PO (09:10)
[2023-02-03] MEDS: VITAMIN B COMPLEX CAPSULE 1 CAP PO (09:10)
[2023-02-03] MEDS: EMPAGLIFLOZIN 25 MG TABLET PO (09:10)
[2023-02-03] MEDS: METOPROLOL TARTRATE 25 MG TABLET PO (09:10)
[2023-02-03] MEDS: ATORVASTATIN 10 MG TABLET PO (09:10)
[2023-02-03] MEDS: ASCORBIC ACID 500 MG TABLET PO (09:10)
[2023-02-03] MEDS: MULTIVITAMINS THERAPEUTIC TAB (*BKC) 1 TABLET PO (09:10)
[2023-02-03] MEDS: OMEGA 3 POLYUNSAT FATTY ACIDS 1 GM CAP 2 GM PO (09:10)
--- NOTE | 2023-02-03 10:12 | PM.PNCARD ---
Progress Note: A&P Assessment and Plan (1) Atrial fibrillation with tachycardic ventricular rate: Code(s): I48.91 - Unspecified atrial fibrillation Status: Acute Assessment and Plan: Converted to sinus rhythm on evening of 02/02. Diltiazem drip stopped. Has been started on Metoprolol, continue with Metoprolol. TSH level normal. Echo is currently being done. Has been started on Xarelto for anticoagulation, continue. Will arrange for outpatient follow up in our clinic. (2) Essential (primary) hypertension: Code(s): I10 - Essential (primary) hypertension Status: Acute Assessment and Plan: Blood pressure are stable. Continue with HCTZ, Lisinopril (3) Mixed hyperlipidemia: Code(s): E78.2 - Mixed hyperlipidemia Status: Acute Assessment and Plan: Cont atorvastatin. (4) Family history of premature CAD: Code(s): Z82.49 - Family history of ischemic heart disease and other diseases of the circulatory system Status: Acute Assessment and Plan: Continue primary prevention. (5) Type 2 diabetes mellitus without complication, without long-term current use of insulin: Code(s): E11.9 - Type 2 diabetes mellitus without complications Status: Acute Assessment and Plan: Management as per primary team Plan Okay to discharge home from a cardiac standpoint. Will arrange outpatient follow up in our office. Recommendations/Plan discussed with Hospitalist. Subjective Date/time seen: 02/03/23 10:12 Interval history: Reason for visit: Atrial fibrillation with RVR HPI: Kevin Ward is a 72 y.o. male whom we are asked to see at the request of Dr. Mcneil in the emergency room for advice and opinion regarding his new onset of atrial fibrillation with rapid ventricular response.? He has a history of hypertension, high cholesterol and diabetes. The patient has noted fast heartbeats intermittently but they last less than a minute.? Last night when he went to bed he noted fast heart beats, and they persisted this morning.? He felt flushed but had no chest discomfort, dizziness or shortness of breath.? He came to the emergency room and was found to have new onset AFib with heart rate in the 130s.? He was given Cardizem 10 then 15 mg IV push, and started on a Cardizem drip at 10 milligrams/hour.? HR is now 100-110 BPM. Mr. Franks has no history of heart disease.? He has active gentleman, and can do heavy yd work etc. with no particular problems, no WILLIS or chest discomfort.? No bleeding issues.? No signs or symptoms of sleep apnea.? No alcohol intake or thyroid disease.? Family history of premature CAD but no history of AFib.? He was planning on going to [place] tomorrow for the weekend. EKG today:? AFib rate 153, low voltage, poor R-wave progression, nonspecific ST changes. Troponins negative x2. Chest x-ray:? Clear, personally reviewed. Date of service 02/03: Patient converted to sinus rhythm yesterday evening and has remained in sinus rhythm. HR in the high 50s to 60s. He is feeling well. Hoping to leave hospital by noon so he can go to [place]. Review of Systems Review of Systems: No chest pain, palpitations. Exam Const: General: comfortable and no acute distress HENMT: Mouth: Yes moist mucous membranes Eyes: General: appearance normal, both eyes and all related structures Sclera: sclerae normal Neck: Neck: supple Resp: Effort & Inspection: normal respiratory effort Cardio: Rate: regular rate Rhythm: regular rhythm Skin: General skin exam: normal color Neuro: Speech: normal speech Psych: Mental Status: mental status grossly normal Affect: normal affect Objective Data Vital Signs Vital Signs: Vital Signs - 24 hr 02/02/23 10:47 02/02/23 10:52 02/02/23 11:35 Temperature 37.0 C Pulse Rate 151 H 151 H 136 H Respiratory Rate 18 Blood Pressure 158/98 H 158/98 H Pulse Oximetry 99 Oxygen Delivery 02/02/23 10:46 02/02/23 11:04
--- NOTE | 2023-02-03 10:44 | PM.DS ---
DS: Admitting Diagnosis Discharge Date 02/03/23 Admitting Diagnosis Atrial Fibrillation DS: Discharge Diagnosis Discharge Diagnosis (1) Atrial fibrillation with tachycardic ventricular rate: Code(s): I48.91 - Unspecified atrial fibrillation Status: Acute (2) Type 2 diabetes mellitus without complication, without long-term current use of insulin: Code(s): E11.9 - Type 2 diabetes mellitus without complications Status: Acute (3) Essential (primary) hypertension: Code(s): I10 - Essential (primary) hypertension Status: Acute DS: Summary Hospital Course Reason for hospitalization: 72 y/o M presents here with intermittent tachycardia with PMH of HTN, HLD, and DM. Please see H&P for details. Hospital Course: Patient seen by his PCP for elevated heart rate.? EKG was obtained and patient was referred to ED due to concern for new onset AFib. HR 86-150's at arrival. EKG: AFib with RVR (rate 153), Low QRS voltage in precordial leads, incomplete RBBB, poor R wave progression - cannot rule out old infarct, and compared to prior on 06/23/22 there is now AFib and incomplete RBBB. Started on diltiazem - initial 10 mg IVP then started on gtt at 15 mg/hr. Cardiology consulted. Stopped aspirin and started Xarelto 20 mg daily.?Patient converted to NSR. Diltiazem stopped and he was started on metoprolol orally. Plan for ischemia evaluation as OPT.?TSH normal. He remained clinically stable. he does drink '1 gallon' of caffeinated fluids per day. he was advised to cut this back to 1-2 cups per day. Side effects of new medciations discussed. He was able to be discharged home on 02/03/23. Status at Discharge Cognitive/behavioral status at discharge: stable Time Spent with Patient Time attestation: Total time spent providing and/or coordinating discharge services: 35 minutes Time spent: Greater than 30 minutes Exam Narrative: AF 97.4 132/74 70 14 98% ra Gen - NARD Chest - CTA bilaterally, nml RR CV - RRR S1/S2 Abd - Soft, NT/ND, Positive BS Ext - No pedal edema. Negative Morteza's Psych - Nml mood and affect Skin - Warm and dry DS: Data Data Completed and Pending Labs on day of discharge: Labs from last 24 hours 02/03/23 02/03/23 02/02/23 08:31 04:18 21:34 WBC RBC Hgb Hct MCV MCH MCHC RDW Plt Count MPV Immature Gran % (Auto) Neut % (Auto) Lymph % (Auto) [place] % (Auto) Eos % (Auto) Baso % (Auto) Lymph # (Auto) [place] # (Auto) Eos # (Auto) Baso # (Auto) Abs Immat Gran (auto) Absolute Neuts (auto) Absolute Nucleated RBC Nucleated RBC % PT INR APTT Sodium Potassium Chloride Carbon Dioxide Anion Gap BUN Creatinine Estim Creat Clear Calc Estimated GFR Glucose POC Capillary Glucose 161 H 216 H Hemoglobin A1c 7.6 H Calcium Magnesium Total Bilirubin AST ALT Alkaline Phosphatase Troponin I Total Protein Albumin Lipase TSH Influenza A (RT-PCR) Influenza B (RT-PCR) RSV (RT-PCR) SARS-CoV-2 RNA (RT-PCR) 02/02/23 02/02/23 02/02/23 16:35 13:32 11:04 WBC RBC Hgb Hct MCV MCH MCHC RDW Plt Count MPV Immature Gran % (Auto) Neut % (Auto) Lymph % (Auto) [place] % (Auto) Eos % (Auto) Baso % (Auto) Lymph # (Auto) [place] # (Auto) Eos # (Auto) Baso # (Auto) Abs Immat Gran (auto) Absolute Neuts (auto) Absolute Nucleated RBC Nucleated RBC % PT INR APTT Sodium Potassium Chloride Carbon Dioxide Anion Gap BUN Creatinine Estim Creat Clear Calc Estimated GFR Glucose POC Capillary Glucose Hemoglobin A1c Calcium Magnesium 1.9 Total Bilirubin AST ALT Alkaline Phosphatase Troponin I < 0.012 < 0.012 Total Protein Albumin Lipase TSH Influenza A (R
--- NOTE | 2023-02-03 14:38 | ECHO_ITS ---
Patient Info Name: Kevin Ward Age: 72 years : 1950 Gender: Male Ht: 64 in Wt: 198 lbs BSA: 2.05 m2 HR: 58 bpm BP: 104 / 65 mmHg Heart Rhythm: Sinus Rhythm Technical Quality: Good Exam Date: 02/03/2023 10:09 AM Exam Location: Echo Lab Patient Status: Outpatient Admit Date: 02/02/2023 Staff Ordering Physician: Evon Cisneros MD Distribution A Class Lineman: Trina Collier RDCS Attending Provider: Juan Paz MD Referring Physician: Amelia RIVERA; Exam Type: CA echo doppler color flow Study Info Indications - NEW A FIB Complete two-dimensional, color flow and Doppler transthoracic echocardiogram is performed. Summary 1. Complete two-dimensional, color flow and Doppler transthoracic echocardiogram is performed. 2. Left ventricular chamber dimension is normal. 3. Left ventricular systolic function is normal, estimated at 65-70%. 4. There is mildly increased left ventricular wall thickness. 5. The left ventricular diastolic function is grade I diastolic dysfunction. 6. Right ventricular systolic function is normal. 7. No significant valvular disease. Left Ventricle Left ventricular chamber dimension is normal. Left ventricular systolic function is normal, estimated at 65-70%. There is mildly increased left ventricular wall thickness. The left ventricular diastolic function is grade I diastolic dysfunction. Right Ventricle Right ventricular chamber dimension is normal. Right ventricular systolic function is normal. Left Atria Left atrial chamber dimension is normal. Right Atria Right atrial chamber dimension is normal. Atrial Septum Intact interatrial septum visualized by color flow imaging. Aortic Valve The aortic valve is probable trileaflet. There is no aortic valve stenosis. There is no aortic valve regurgitation. Mitral Valve There is trace mitral valve regurgitation. Tricuspid Valve There is trace tricuspid valve regurgitation. Pericardium/Pleural There is no pericardial effusion. Inferior Vena Cava Inferior vena cava is not well visualized. Aorta The aortic root size at the sinus of Valsalva is normal. Left Ventricular Outflow Tract Name Value Normal LVOT Doppler LVOT Peak Gradient 2 mmHg LVOT Mean Gradient 1 mmHg LVOT VTI 16 cm LVOT VTI/AV VTI Ratio 0.7 Pulmonic Valve Name Value Normal RVOT Doppler RVOT Peak Gradient 1 mmHg PV Doppler PV Peak Gradient 1 mmHg Mitral Valve Name Value Normal MV Doppler MV Decel [place] 226 cm/s2 MV PHT 86 ms MV Area (PHT)
== END 2023-02-03 11:45 | disposition home or self-care (01) ==
LOC: ANHED 11:18 → ANHIMU 14:01
PROVIDERS: Internal Medicine Cardiovascular Disease; Student in an Organized Health Care Education/Training Program; Admitting Provider Internal Medicine; Emergency Provider Emergency Medicine; PCP Nurse Practitioner; Visit Provider Internal Medicine
DX: I48.91 Unspecified atrial fibrillation (principal); I47.20 Ventricular tachycardia, unspecified; I45.10 Unspecified right bundle-branch block; E78.2 Mixed hyperlipidemia; I11.9 Hypertensive heart disease without heart failure; E11.9 Type 2 diabetes mellitus without complications; Z20.822 Contact with and (suspected) exposure to COVID-19; Z79.82 Long term (current) use of aspirin; Z79.84 Long term (current) use of oral hypoglycemic drugs; Z79.899 Other long term (current) drug therapy; Z83.3 Family history of diabetes mellitus; Z82.49 Family history of ischemic heart disease and other diseases of the circulatory system
CPT/HCPCS: 36415; 71046; 80053; 82948; 83036; 83690; 83735; 84443; 84484; 85025; 85610; 85730; 87637; 93005; 93306; 96365; 96366; 99285; A9270; G0378; J7030

== ENCOUNTER 2023-12-28 09:30 | Outpatient (CLI) | payer MEDICARE, SELFPAY ==
--- NOTE | ~2023-12-28 | XR_ITS ---
EXAMINATION: XR abdomen/kub 1V DATE: 12/28/2023 09:50 INDICATION: Gross hematuria. Abdominal pain. TECHNIQUE: A supine view of the abdomen on 2 radiographs was obtained. COMPARISON: CT abdomen and pelvis 12/28/2023 FINDINGS: There are no dilated loops of bowel. There is a 4 mm stone in right kidney. IMPRESSION: 1. 4 mm stone in right kidney. Reviewed, dictated and finalized at location B.
--- NOTE | ~2023-12-28 | CT_ITS ---
EXAMINATION: CT abdomen pelvis wo/w con DATE: 12/28/2023 10:31 INDICATION: Gross hematuria TECHNIQUE: Computed tomography (CT) of the abdomen and pelvis was performed without intravenous contr ast. CT of the abdomen and pelvis was then performed with a total of 130 mL Omnipaque-350 intravenous contrast using a double-bolus technique for simultaneous opacification of the renal parenchyma and r enal collecting system. Automated exposure control and iterative reconstruction technique were employ ed. The dose-length product was 2198.75 mGy-cm. COMPARISON: 03/31/2022 FINDINGS: Mild atelectasis at the bilateral lung bases. No pleural effusion. Heart size is normal. Atherosclero tic coronary artery calcific lesion. Small pericardial effusion. Liver, gallbladder, spleen, pancreas and bilateral adrenal glands are normal. 4 mm nonobstructing stone at the lower pole of the right ki dney. 1-2 mm nonobstructing stone at the lower pole of the left kidney. There are a few Amber low -attenuation nonenhancing bilateral renal cysts measuring up to 6 mm. No hydronephrosis. Small portio n of the mid left and distal right ureters are decompressed at the time of the post contrast imaging with no discernible contrast. The remainder of the bilateral renal collecting systems and ureters are opacified with no urothelial irregularities. Bladder is normal. Bowels including the appendix are no rmal. Small fat-containing umbilical hernia. Small bilateral fat-containing inguinal hernias. No free intraperitoneal gas or fluid. No pathologically enlarged abdominal or pelvic lymphadenopathy. A few small scattered bone islands in the pelvis and proximal right femur. Mild/moderate bilateral sacroili ac osteoarthritis. IMPRESSION: 1. Bilateral nonobstructing nephrolithiasis. 2. Small pericardial effusion. Reviewed, dictated and finalized at location A.
[2023-12-28 10:09] LABS: Estimated Glomerular Filt Rate > 60
== END 2023-12-28 09:31 | disposition home or self-care (01) ==
PROVIDERS: PCP Nurse Practitioner; Visit Provider Urology
DX: N20.0 Calculus of kidney (principal)
CPT/HCPCS: 74018; 74178; Q9967

== ENCOUNTER 2024-02-01 08:59 | Outpatient (CLI) | payer MEDICARE, SELFPAY ==
--- NOTE | 2024-02-01 09:00 | ECG_ITS ---
Test Date: 2024-02-01 09:18:43 Measurements Intervals [place] Rate: 60 P: -8 IN: 194 QRS: -18 QRSD: 119 T: 26 QT: 396 QTc: 399 Interpretive Statements SINUS RHYTHM LOW QRS VOLTAGE IN PRECORDIAL LEADS [QRS DEFLECTION < 1.0 mV IN CHEST LEADS] POSSIBLE ANTERIOR MYOCARDIAL INFARCTION [30 ms Q WAVE IN V3/V4, OR R < 0.2 mV IN V4], OF INDETERMINATE AGE ABNORMAL ECG Electronically Signed On 02-01-2024 11:00:12 AUDIO VISUAL TECHNICIAN by Roly Mcleod M.D.
[2024-02-01 10:26] LABS: Anion Gap 7 mmol/L (4-12); Blood Urea Nitrogen 30 mg/dL (9-20); Calcium 10.4 mg/dL (8.4-10.2); Carbon Dioxide 27 mmol/L (22-30); Chloride 104 mmol/L (98-107); Estimated Glomerular Filt Rate > 60; Glucose 169 mg/dL (65-110); Sodium 138 mmol/L (137-145)
== END 2024-02-01 09:00 | disposition home or self-care (01) ==
LOC: ANHSURGERY 09:03
PROVIDERS: Anesthesiology; PCP Nurse Practitioner; Visit Provider Surgery
DX: Z01.818 Encounter for other preprocedural examination (principal); K43.2 Incisional hernia without obstruction or gangrene; I10 Essential (primary) hypertension; E11.9 Type 2 diabetes mellitus without complications; R94.31 Abnormal electrocardiogram [ECG] [EKG]
CPT/HCPCS: 36415; 80048; 86850; 86900; 86901; 93005

== ENCOUNTER 2024-02-08 01:27 | Day surgery (SDC) | payer MEDICARE, SELFPAY ==
--- NOTE | 2024-01-30 08:49 | PC.NURSE ---
Report to the Outpatient Waiting Room, entrance under the green pavilion located off [facility], at time __6 AM on date __02/08/24 . Planned Procedure Time: __7: 30 AM .? Time changes happen often and if your time is changed the preop area will call you the afternoon before. - You and your visitor will be asked to self-screen and do not enter if you have any COVID symptoms. Please call surgeon if you need to reschedule. - A mask is optional within the hospital at this time. Patients may have clear liquids (water, carbonated beverages, clear teas, apple juice) until 3 hours prior to surgery( 4:30 AM) with a maximum of 20 ounces. - No food from midnight until time of surgery and no smoking. This includes no chewing gum, candy or mints. - Infants may have breast milk until 4 hours before surgery, formula 6 hours prior to surgery. - Children will be allowed to drink immediately following surgery.? If applicable, please bring a bottle or sippy cup to assist with drinking. Juice, water, soda, and popsicles are readily available.? For infants on formula, please bring formula the day of surgery.? Pacifiers are allowed. Take only the following medications with a SIP of water on the morning of surgery: __METOPROLOL DO NOT STOP ANY OF YOUR OTHER PRESCRIPTION MEDICATIONS PRIOR TO SURGERY EXCEPT THE FOLLOWING Medications to discontinue per physician __HOLD ALL VITAMINS AND SUPPLEMENTS 3 DAYS PRE OP .LAST DOSE 02/04/[address] GERBER ( PATIENT TO CALL) Please no make-up, nail guamanian, hairspray, perfume, deodorant, or body powder the day of surgery.? No jewelry (including any body piercings) or valuables the day of surgery, leave them at home.? Please take a shower or bath the night before, or the morning of, surgery with an antibacterial soap.? Wear comfortable, loose fitting clothing.? Children are encouraged to wear pajamas. - Jewelry must be removed prior to entering the operating room.? Rings and piercings that are not removed may be cut off. - The hospital will not accept responsibility for valuables.? - Please leave all valuables, including medications, at home the day of surgery. If you are going home after surgery, a licensed mobile lounge driver or operator must drive you home.? - NO public transportation without another adult if you receive anesthesia. - We recommend that an adult stay with you for 24 hours following discharge. - We also recommend that you do not drive, make important decision, drink alcoholic beverages, or take any drugs that were not prescribed by your health care provider for at least 24 hours after your discharge time. For Pediatric surgeries, we recommend two adults accompany the child home. Follow any additional instructions given to you from your surgeon. Telephone instructions given to __PATIENT and asked if any additional questions and then verbalized understanding. Patient advised to call surgeon office or pre surgery nurse liaison [phone] if any additional questions.
[2024-01-30 09:02] VITALS: BMI 33.5
--- NOTE | 2024-02-07 13:44 | WPDANESEPPF ---
Anes - Initial Pre Proc Eval Procedure: Operation Date: 02/08/24 07:30 Proposed Procedures p Laparoscopic Incisional Hernia Repair with Mesh, Davinci Assisted - Ulices Page DO Date/Time: 02/07/24 13:44 Surgeon: Ulices Page DO Pre Op Diagnosis: Incisional Hernia Patient Data Age: 73 Gender: M Height: 1.63 m Weight: 88.45 kg Allergies Allergy/AdvReac Type Severity Reaction Status Date / Time erythromycin base Allergy Unknown Nausea Verified 02/08/24 06:45 Home Medications ?Medication ?Instructions ?Recorded ?Confirmed ?Type ascorbic acid (vitamin C) 500 mg 500 mg PO DAILY 02/14/19 02/08/24 History tablet vitamin B complex (B 1 tablet PO DAILY 04/28/21 02/08/24 History Complex-Vitamin B12 tablet) omega 0-qjk-bfe-fish oil 1,000 mg 2 cap PO BID 07/09/22 02/08/24 History (120 mg-180 mg) capsule (Fish Oil) cyanocobalamin (vitamin B-12) 1,000 mcg PO DAILY 11/16/22 02/08/24 History 1,000 mcg tablet (Vitamin B-12) multivitamin 1 tablet PO DAILY 02/02/23 02/08/24 History cholecalciferol (vitamin D3) 10 10 mcg PO DAILY 02/14/23 02/08/24 History mcg (400 unit) capsule lancets 33 gauge (OneTouch Delica See Rx Instructions .Route 05/19/23 12/25/23 Rx Plus Lancet) .COMPLEX #100 ea dapagliflozin propanediol 10 mg 10 mg PO DAILY #90 tabs 10/25/23 01/30/24 Rx tablet (Farxiga) blood sugar diagnostic (FixberTouch #300 strips 10/26/23 12/25/23 Rx Ultra Test strips) atorvastatin 10 mg tablet 10 mg PO DAILY #90 tabs 12/01/23 01/30/24 Rx sitagliptin phosphate 50 See Rx Instructions .Route 12/05/23 01/30/24 Rx mg-metformin 1,000 mg tablet .COMPLEX #180 tabs (Janumet) lisinopril 10 See Rx Instructions .Route 12/20/23 01/30/24 Rx mg-hydrochlorothiazide 12.5 mg .COMPLEX #90 tabs tablet metoprolol tartrate 25 mg tablet See Rx Instructions .Route 12/20/23 02/08/24 Rx .COMPLEX #180 tabs rivaroxaban 20 mg tablet (Xarelto) See Rx Instructions .Route 12/20/23 02/08/24 Rx .COMPLEX #90 tabs calcium 600 mg capsule 600 mg PO DAILY 01/30/24 02/08/24 History vitamin E 50 unit capsule 50 unit PO DAILY 01/30/24 02/08/24 History Patient hx anesthesia problems: none Family hx anesthesia problems: none Results Review: All pre-operative results and documents have been reviewed as part of the pre-operative evaluation. [facility] Past Medical History Medical History (Updated 12/23/23 @ 09:12 by Ashley Winn) Atrial fibrillation with tachycardic ventricular rate Dx of 02/02/23 Family history of premature CAD Hypertension Mixed hyperlipidemia Type 2 diabetes mellitus without complication, without long-term current use of insulin Surgical History Surgical History (Updated 12/23/23 @ 08:53 by Sil Bowie CMA) H/O umbilical hernia repair 2017 Dr. Ulices Page History of arthroscopic knee surgery Dr Powers- 2022 History of ear surgery Family History Family History Mother Family history of diabetes mellitus in first degree relative Family history of malignant neoplasm, Onset Age: 65 History of smoking, of lung cancer age 67 Diabetes mellitus, Onset Age: 65 Father Family history of diabetes mellitus in first degree relative, Onset Age: 65 Family history of heart disease in male family member before age 55, Onset Age: 65 Patient's father is Acute myocardial infarction, Onset Age: 65 1st heart attack was age 42, of heart attack at 64 Sibling Family history of malignant neoplasm of breast in first degree relative Patient's brother is in good health Family history of cardiovascular disease Carcinoma of colon Social History Social History 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 Likes to go on cruises, 2 to the [employer] and one to [place] in [id number]. Smoking status: Never smoker Second hand tobacco smoke exposure: No Alcohol intake: never Substance use: never Substance use type: does not use Do You Feel Safe in your Home?: Yes Lack of Transportation: No Lack of Food: Never True Current Housing: I Have Housing Concerned About Future Housing: No Difficulty Paying Gas/Electric Bills: No Difficulty Paying for Meds: No Currently Unemployed: No Education: High School Diploma/GED Difficulty w/ Childcare or Family Care: No Living arrangements: with family Occupation/Education: retired Spiritual care concerns: No Anes - Eval Final PreProcedure Day of Procedure 02/07/24 13:44 Patient weight: normal Heart: irregular rhythm Lungs: clear to auscultation Airway: Mallampati scale class II Neurological: alert and oriented Last oral intake: >/= 8 hours ASA classification: III Emergent: no Anesthetic plan: proceed Anesthesia type and monitoring: general Results Review: All pre-operative results and documents have been reviewed as part of the pre-operative evaluation. Informed Consent: The patient's anesthetic plan and its attendant risks and benefits were discussed with the patient/family/POA. Questions were solicited and answers provided to the satisfaction of the patient/family/POA.
[2024-02-08] VITALS (8 sets, daily range): BP systolic 102–138; BP diastolic 66–103; PULSE 57–66; RESP 14–18; TEMP 36.5–36.6; O2SAT 95–99; BMI 32.1
[2024-02-08] MEDS: LACTATED RINGERS 1,000 ML 30 ML IV CONT ×2 (06:20→09:06)
[2024-02-08 06:36] LABS: Glucose Point of Care 149 mg/dl (65-105)
[2024-02-08] MEDS: ACETAMINOPHEN 500 MG TABLET 1000 MG PO (06:55)
[2024-02-08] MEDS: KETOROLAC 15 MG/ML VIAL (*BKC) IV PUSH (06:58)
--- NOTE | 2024-02-08 07:15 | WPDHPUPDATE1 ---
History and Physical Update Update Date/Time: 02/08/24 07:15 History and Physical has been reviewed, including an updated exam of the patient. There are NO changes in the patient's condition. Risks, benefits, and alternatives have been discussed and questions answered. Patient agrees to proceed with procedure.
--- NOTE | 2024-02-08 07:15 | PM.IMHP ---
H&P: HPI History of Present Illness Date/Time: 02/08/24 07:15 Chief Complaint: Incisional hernia Narrative: 73 yo man presents for incisional hernia repair. He reports no signifcant changes since last seen in office. Review of Systems Review of Systems: All systems reviewed & are unremarkable except as noted in HPI and below Constitutional: Constitutional: Denies chills, Denies fever(s), Denies headache(s) and Denies weight loss Eyes: Eyes: Denies change in vision ENT: Denies dizziness, Denies headache(s), Denies neck mass and Denies throat swelling Cardiovascular: Cardiovascular: Denies chest pain, Denies lightheadedness and Denies dyspnea Respiratory: Respiratory: Denies cough, Denies dyspnea and Denies wheezing Gastrointestinal: Gastrointestinal: Denies abdominal pain, Denies change in bowel habits, Denies nausea and Denies vomiting Genitourinary: Genitourinary: Denies hematuria and Denies dysuria Musculoskeletal: Musculoskeletal: Reports as per HPI Integumentary/Breasts: Skin/Breast: Reports as per HPI Neurologic: Denies dizziness and Denies headache(s) Allergic/Immunologic: Allergic/Immunologic: Denies throat swelling and Denies wheezing REPLACED BY [facility] Past Medical History Medical History (Updated 12/23/23 @ 09:12 by Ashley Winn) Atrial fibrillation with tachycardic ventricular rate Dx of 02/02/23 Family history of premature CAD Hypertension Mixed hyperlipidemia Type 2 diabetes mellitus without complication, without long-term current use of insulin Surgical History Surgical History (Updated 12/23/23 @ 08:53 by Sil Bowie [facility]) H/O umbilical hernia repair 2017 Dr. Ulices Page History of arthroscopic knee surgery Dr Powers- 2022 History of ear surgery Family History Family History Mother Family history of diabetes mellitus in first degree relative Family history of malignant neoplasm, Onset Age: 65 History of smoking, of lung cancer age 67 Diabetes mellitus, Onset Age: 65 Father Family history of diabetes mellitus in first degree relative, Onset Age: 65 Family history of heart disease in male family member before age 55, Onset Age: 65 Patient's father is Acute myocardial infarction, Onset Age: 65 1st heart attack was age 42, of heart attack at 64 Sibling Family history of malignant neoplasm of breast in first degree relative Patient's brother is in good health Family history of cardiovascular disease Carcinoma of colon Social History Social History 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 Likes to go on m-spatial, 2 to the [employer] and one to [place] in [id number]. Smoking status: Never smoker Second hand tobacco smoke exposure: No Alcohol intake: never Substance use: never Substance use type: does not use Do You Feel Safe in your Home?: Yes Lack of Transportation: No Lack of Food: Never True Current Housing: I Have Housing Concerned About Future Housing: No Difficulty Paying Gas/Electric Bills: No Difficulty Paying for Meds: No Currently Unemployed: No Education: High School Diploma/GED Difficulty w/ Childcare or Family Care: No Living arrangements: with family Occupation/Education: retired Spiritual care concerns: No Meds Home Medications and Allergies Home Medications ?Medication ?Instructions ?Recorded ?Confirmed ?Type ascorbic acid (vitamin C) 500 mg 500 mg PO DAILY 02/14/19 02/08/24 History tablet vitamin B complex (B 1 tablet PO DAILY 04/28/21 02/08/24 History Complex-Vitamin B12 tablet) omega 2-zhr-hky-fish oil 1,000 mg 2 cap PO BID 07/09/22 02/08/24 History (120 mg-180 mg) capsule (Fish Oil) cyanocobalamin (vitamin B-12) 1,000 mcg PO DAILY 11/16/22 02/08/24 History 1,000 mcg tablet (Vitamin B-12) multivitamin 1 tablet PO DAILY 02/02/23 02/08/24 History cholecalciferol (vitamin D3) 10 10 mcg PO DAILY 02/14/23 02/08/24 History mcg (400 unit) capsule lancets 33 gauge (OneTouch Delica See Rx Instructions .Route 05/19/23 12/25/23 Rx Plus Lancet) .COMPLEX #100 ea dapagliflozin propanediol 10 mg 10 mg PO DAILY #90 tabs 10/25/23 01/30/24 Rx tablet (Farxiga) blood sugar diagnostic (OneTouch #300 strips 10/26/23 12/25/23 Rx Ultra Test strips) atorvastatin 10 mg tablet 10 mg PO DAILY #90 tabs 12/01/23 01/30/24 Rx sitagliptin phosphate 50 See Rx Instructions .Route 12/05/23 01/30/24 Rx mg-metformin 1,000 mg tablet .COMPLEX #180 tabs (Janumet) lisinopril 10 See Rx Instructions .Route 12/20/23 01/30/24 Rx mg-hydrochlorothiazide 12.5 mg .COMPLEX #90 tabs tablet metoprolol tartrate 25 mg tablet See Rx Instructions .Route 12/20/23 02/08/24 Rx .COMPLEX #180 tabs rivaroxaban 20 mg tablet (Xarelto) See Rx Instructions .Route 12/20/23 02/08/24 Rx .COMPLEX #90 tabs calcium 600 mg capsule 600 mg PO DAILY 01/30/24 02/08/24 History vitamin E 50 unit capsule 50 unit PO DAILY 01/30/24 02/08/24 History Allergies Allergy/AdvReac Type Severity Reaction Status Date / Time erythromycin base Allergy Unknown Nausea Verified 02/08/24 06:45 Vital Signs Vital Signs - 24 hr 02/08/24 06:05 Temperature 97.7 F Pulse Rate 57 L Respiratory Rate 14 Blood Pressure 117/69 Pulse Oximetry 99 Oxygen Delivery Room Air Exam Const: General: no acute distress and alert Orientation/consciousness: patient oriented x3 HENMT: Head: normocephalic and atraumatic Ears: hearing grossly normal bilaterally Face/Nose/Sinus: Normal nares present Mouth: Yes Normal oral and palatal mucosa present Eyes: Periorbital: periorbital findings normal Sclera: sclerae normal EOM: EOMs intact bilaterally Neck: Neck: normal visual inspection, no lymphadenopathy and trachea midline Chest: Chest palpation & inspection: normal inspection of the chest Resp: Effort & Inspection: normal respiratory effort Auscultation: clear to auscultation bilaterally Cardio: Jugular venous distension: no JVD Rate: regular rate Rhythm: regular rhythm Heart sounds: S1 normal heart sound present and S2 normal heart sound present Peripheral pulses: Peripheral pulses 2+ throughout GI: Inspection: normal to inspection GI Palp: Yes Soft to palpation, No Tenderness to palpation present (GI), No Guarding due to palpation present (GI), Yes Hernia present incisional 3-10 cm (just superior to umbilicus) and No Rebound tenderness present Percussion: Yes normal to percussion Auscultation: normal bowel sounds : General: Yes no CVA tenderness Back/Spine/Pelvis: Back: no CVA tenderness Neuro: General: patient oriented x3, no focal motor deficits and CN's II-XI intact bilaterally Cognition (Neuro): normal cognition Speech: normal speech Motor exam (neuro): 5/5 motor strength present throughout Extrem: General: capillary refill normal and no clubbing, cyanosis or edema Assessment and Plan Assessment and plan (1) Incisional hernia: Qualifiers: Obstruction and gangrene presence: without obstruction or gangrene Qualified Code(s): K43.2 - Incisional hernia without obstruction or gangrene Code(s): K43.2 - Incisional hernia without obstruction or gangrene Status: Acute Assessment and Plan: I have recommended laparoscopic incisional hernia repair with mesh, da Reese assisted. I have discussed the procedure, risks, benefits, and alternatives with the patient. All questions answered. No changes since last seen in office.
[2024-02-08] MEDS: ceFAZolin 2 GM/D5W 50 ML 2 GM/50 ML BAG IVPB (07:28)
[2024-02-08] MEDS: BUPIVACAINE/EPINEPHRINE 0.5% 30 ML VIAL INFILTRATE (08:12)
--- NOTE | 2024-02-08 09:04 | P.OP_ITS ---
Procedure Note - Detailed Date of Procedure 02/08/24 Pre-op Diagnosis Incisional Hernia Post-op Diagnosis Same (3 cm incisional hernia) Procedure Performed Laparoscopic 3 cm incisional hernia repair with mesh, da Reese assisted Surgeon Ulices Page DO Anesthesia General and Local (0.5% bupivacaine with epinephrine) Indications This is a 73-year-old man who presented with a supraumbilical bulge that he had noticed for the past several years. He has a history of a robotic prostatectomy and had an umbilical hernia repaired at that time. He has now noticed a bulge above the umbilicus that is causing some discomfort. He was found to have a 3 cm incisional hernia at the scar from the robotic prostatectomy just superior to the umbilicus. Discussions were made with the patient about treatment options and decision was made to proceed with robotic assisted laparoscopic incisional hernia repair with mesh. Findings Robotic assisted laparoscopic incisional hernia repair with mesh was performed. The patient was found to have a 3 cm supraumbilical incisional hernia. The hernia sac and preperitoneal fat was excised around the hernia defect. A robotic intraperitoneal onlay mesh technique was utilized for repair. The fascial edges were reapproximated using 0 Stratafix running absorbable suture. A Ventralight ST 15 cm x 10 cm mesh was then placed. No specimens were obtained for pathology. No other intra-abdominal abnormalities were noted. Description of Procedure Procedure as well as risks, benefits, and alternatives were discussed with the patient. Written consent was obtained and placed in chart prior to procedure. Patient was brought back to surgical suite. He was placed supine on operating table. Time-out was done to confirm patient and procedure. He was then intubated by the anesthesia department. A bump was placed under his left hip, and the bed was flexed slightly to extend the space between his costal margin and iliac crest. His abdomen was prepped and draped in sterile fashion using chlorhexidine prep. A 5 millimeter incision was made in the left upper quadrant, and a 5 millimeter Optiview trocar was advanced through the abdominal layers under direct visualization. Once inside the abdominal cavity, carbon dioxide insufflation was used to create a pneumoperitoneum. His abdomen was inspected. An 8 millimeter incision was made in the left lower quadrant, and an 8 millimeter robotic trocar was placed under direct visualization. Another 8 millimeter incision was made in the left lateral abdomen, and an 8 millimeter robotic trocar was placed under direct visualization. 0.5% bupivacaine with epinephrine was infiltrated around each port site. The 5 millimeter port was removed, and an 8 mm robotic trocar was placed under direct visualization. The robotic arms were brought up to the patient's bedside and secured to the ports. The camera and instruments were inserted, and I then moved over to the robotic console and took control of the camera and instruments. After careful thorough inspection of the abdominal cavity, I began my dissection at the hernia. There was some omentum adhesed into the hernia defect which was carefully taken down using scissors with electrocautery. The hernia sac and preperitoneal fat was then excised using electrocautery with scissors. I took down the falciform ligament several cm cephalad using scissors with el ectrocautery. I then measured the hernia size. The hernia measured 3 cm. The fascia was closed using an 0-Stratafix running suture in a vertical fashion. A Ventralight ST 15 cm x 10 cm mesh was then placed within the abdominal cavity. This was oriented vertically with the mesh centered on the hernia defect. The mesh was then secured at the center and 4 corners using 3-0 Vicryl simple interrupted sutures. The entire perimeter of the mesh was then secured to the abdominal wall using 2-0 Stratafix running absorbable suture. The repair was inspected, and one final inspection was made around the abdominal cavity. The robotic instruments were then removed, and the robotic arms were disengaged from the trocars. The ports were then removed under direct visualization, the camera was removed, and the pneumoperitoneum was released. The skin of the incisions was then approximated using 4-0 Monocryl subcuticular suture. Exofin glue was then applied on top. The patient was then awakened from anesthesia, extubated, and transferred to recovery. Implants Ventralight ST 15 cm x 10 cm mesh Estimated Blood Loss 5 Complications No immediate complications Condition Stable Disposition Same day [facility] Billing Surgery - Charge Forward: Surgery Billing
[2024-02-08 09:29] LABS: Glucose Point of Care 158 mg/dl (65-105)
[2024-02-08] MEDS: oxyCODONE HCL (*CRX) 5 MG TAB IR PO (10:21)
== END 2024-02-08 11:16 | disposition home or self-care (01) ==
PROVIDERS: PCP Nurse Practitioner; Visit Provider Surgery
PROC: (CPT 49593; principal; 2024-02-08 07:30)
DX: K43.2 Incisional hernia without obstruction or gangrene (principal); I10 Essential (primary) hypertension; E11.9 Type 2 diabetes mellitus without complications; E78.2 Mixed hyperlipidemia; Z79.84 Long term (current) use of oral hypoglycemic drugs; Z79.01 Long term (current) use of anticoagulants; Z98.890 Other specified postprocedural states; Z86.79 Personal history of other diseases of the circulatory system; Z80.1 Family history of malignant neoplasm of trachea, bronchus and lung; Z80.3 Family history of malignant neoplasm of breast; Z80.0 Family history of malignant neoplasm of digestive organs; Z82.49 Family history of ischemic heart disease and other diseases of the circulatory system
CPT/HCPCS: 49593; S2900; 36415; 80048; 82948; 86850; 86900; 86901; 93005; A9270; C1781; J0690; J1100; J1885; J2003; J2250; J2405; J2704; J3010; J7120